=== PATIENT | female | born 1985 | race Caucasian/White ===

== ENCOUNTER → 2017-04-13 | Outpatient (CLI) | payer OTHER ==
[2017-04-13 13:16] LABS: HEMOGLOBIN 14.7 gm/dl (12.3-15.3); RED BLOOD COUNT 5.04 M/UL (4.00-5.10); WHITE BLOOD COUNT 12.7 K/UL (4.5-11.0)
[2017-04-13 13:32] LABS: BUN/CREATININE RATIO 15 (0-10)
== END ==
LOC: LAB 12:43
PROVIDERS: Dermatology
DX: L70.9 Acne, unspecified (principal)
CPT/HCPCS: 36415; 80053; 82248; 85027